=== PATIENT | male | born 1985 | race Caucasian/White ===

== ENCOUNTER 2019-04-18 21:11 | Emergency (ER) | payer SELFPAY ==
[~2019-04-18] VITALS: Ht 177.8 cm; Wt 90.7 kg
[2019-04-18 21:20] VITALS: Ht 177.8 cm; Wt 90.7 kg
[2019-04-18 22:08] LABS: BASOPHIL % 1.8 % (0-2); PLATELET COUNT 250 x10^3mcL (130-400); RED CELL DISTRIBUTION WIDTH 13.7 % (11.5-14.5)
[2019-04-18 22:29] LABS: CALCIUM 9.3 mg/dL (8.5-10.1); CARBON DIOXIDE 24.2 mmol/L (21-32); CHLORIDE SERUM 104 mmol/L (98-107); GFR1 > 60 mL/min; GLUCOSE SERUM 141 mg/dL (74-106); POTASSIUM SERUM 3.7 mmol/L (3.5-5.1); SODIUM SERUM 142 mmol/L (136-145)
[2019-04-18 22:30] LABS: ALBUMIN 3.8 g/dL (3.4-5.0); LIPASE 104 IU/L (73-393)
[2019-04-18 22:42] LABS: ALKALINE PHOSPHATASE 57 U/L (46-116); ALT/SGPT 42 U/L (16-63); AST/SGOT 32 U/L (15-37); BILIRUBIN TOTAL 0.2 mg/dL (0.20-1.00); TOTAL PROTEIN, SERUM 7.4 g/dL (6.4-8.2)
[2019-04-19 01:24] VITALS: BP 116/56
== END 2019-04-19 01:24 | disposition home or self-care (01) ==
LOC: ED 21:11
PROVIDERS: Emergency Medicine
DX: S22.32XA Fracture of one rib, left side, initial encounter for closed fracture (principal); S30.1XXA Contusion of abdominal wall, initial encounter; R11.0 Nausea; F12.10 Cannabis abuse, uncomplicated; V18.4XXA Pedal cycle driver injured in noncollision transport accident in traffic accident, initial encounter; Y93.I9 Activity, other involving external motion; Y92.488 Other paved roadways as the place of occurrence of the external cause; Y99.8 Other external cause status
CPT/HCPCS: J2405; J7030; Q9967